=== PATIENT | male | born 1960 | race Two or more races ===

== ENCOUNTER 2018-06-10 17:03 | Inpatient (IN) | payer OTHER ==
[~2018-06-10] VITALS: Ht 172.7 cm; Wt 60.8 kg
[2018-06-10] MEDS ORDERED: GLUMETZA500 MG PO (17:33)
[2018-06-22] MEDS ORDERED: HYOSCYAMINE0.125 M1 SL ×2 (09:46)
[2018-06-22] MEDS ORDERED: OXYC1TAB9 PO ×2 (09:47)
[2018-06-22] MEDS ORDERED: IMODIUM A-D2 M2 PO ×2 (09:47)
[2018-06-22] MEDS ORDERED: Intestinex CAP PO ×2 (09:47)
== END 2018-06-22 12:35 | disposition home or self-care (01) | DRG 331 ==
LOC: SURH → EDSEX → SURH 06-18 07:00 → O/R 06-18 08:49 → SURH 06-18 08:49
PROVIDERS: ADMIT Surgery
PROC: 07TC4ZZ Resection of Pelvis Lymphatic, Percutaneous Endoscopic Approach (ICD-10-PCS; 2018-06-18)
PROC: 0D1B4Z4 Bypass Ileum to Cutaneous, Percutaneous Endoscopic Approach (ICD-10-PCS; 2018-06-18)
PROC: 0DJD8ZZ Inspection of Lower Intestinal Tract, Via Natural or Artificial Opening Endoscopic (ICD-10-PCS; 2018-06-18)
PROC: 0DTN4ZZ Resection of Sigmoid Colon, Percutaneous Endoscopic Approach (ICD-10-PCS; principal; 2018-06-18 07:00)
PROC: 4A12X4Z Monitoring of Cardiac Electrical Activity, External Approach (ICD-10-PCS; 2018-06-19)
DX: C20 Malignant neoplasm of rectum (principal); E11.9 Type 2 diabetes mellitus without complications; I11.9 Hypertensive heart disease without heart failure; E66.09 Other obesity due to excess calories; G47.33 Obstructive sleep apnea (adult) (pediatric); D50.0 Iron deficiency anemia secondary to blood loss (chronic); Z74.1 Need for assistance with personal care

== ENCOUNTER 2018-06-16 06:55 | Day surgery (SDC) | payer OTHER ==
[~2018-06-16 06:55] MED LIST: GLUMETZA500 MG PO
== END 2018-06-16 15:15 | disposition home or self-care (01) ==
LOC: EDSEX 06:55 → AMB-ENDOS 06:55
DX: K64.8 Other hemorrhoids (principal)

== ENCOUNTER 2019-02-22 11:00 | Inpatient (IN) | payer OTHER ==
[~2019-02-22 11:00] MED LIST changes: +HYOSCYAMINE0.125 M1 SL; +IMODIUM A-D2 M2 PO; +Intestinex CAP PO; +OXYC1TAB9 PO
[2019-02-22] MEDS ORDERED: FORTAMET500 MG (13:34)
[2019-03-04] MEDS ORDERED: OXYC1TAB9 PO (10:44)
[2019-03-04] MEDS ORDERED: INTESTINEX680 M1 PO (10:44)
== END 2019-03-04 12:07 | disposition home or self-care (01) | DRG 330 ==
LOC: ADM 11:00 → EDSTATUS 11:00 → SURH 03-01 07:00 → O/R 03-01 08:30 → SURG 03-01 08:30 → SURH 03-01 11:00 → SURG 03-01 15:07
PROVIDERS: ADMIT Surgery
PROC: 4A033R1 Measurement of Arterial Saturation, Peripheral, Percutaneous Approach (ICD-10-PCS; 2019-03-01)
PROC: 0DQB4ZZ Repair Ileum, Percutaneous Endoscopic Approach (ICD-10-PCS; principal; 2019-03-01 07:00)
DX: Z43.2 Encounter for attention to ileostomy (principal); C20 Malignant neoplasm of rectum; I11.9 Hypertensive heart disease without heart failure; E66.01 Morbid (severe) obesity due to excess calories; G47.33 Obstructive sleep apnea (adult) (pediatric); D50.0 Iron deficiency anemia secondary to blood loss (chronic); E11.9 Type 2 diabetes mellitus without complications; Z79.4 Long term (current) use of insulin